=== PATIENT | male | born 1995 | race Caucasian/White ===

== ENCOUNTER 2021-11-22 18:48 | Emergency (ER) | payer OTHER, SELFPAY ==
--- NOTE | ~2021-11-22 | CT_ITS ---
EXAMINATION: CT brain wo con INDICATION: Head injury COMPARISON: None TECHNIQUE: Standard unenhanced head CT. The dose-length product (DLP) was 605.33 mGy-cm. The mA was a djusted according to patient size. Iterative reconstruction technique was employed. FINDINGS: There is no intracranial hemorrhage, acute infarction, or abnormal mass lesion. The ventric les are normal. There is no abnormal mass effect or midline shift. The short-white matter differentiat ion is normal. The basal cisterns are patent. The orbits are normal. There is moderate opacification of the ethmoidal air cells. IMPRESSION: 1. No acute intracranial abnormality. Reviewed, dictated and finalized at location [facility]
[2021-11-22 19:08] VITALS: BP 148/95; PULSE 97; RESP 18; TEMP 36.8; O2SAT 100
[2021-11-22 20:00] VITALS: BP 132/78; PULSE 72; RESP 16; TEMP 36.3; O2SAT 100
[2021-11-22] MEDS: ACETAMINOPHEN 500 MG TABLET 1000 MG PO (20:26)
[2021-11-22 21:00] VITALS: BP 128/84; PULSE 68; RESP 16; TEMP 36.4; O2SAT 100
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
== END 2021-11-22 21:39 | disposition home or self-care (01) ==
PROVIDERS: Emergency Provider Emergency Medicine
DX: S09.90XA Unspecified injury of head, initial encounter (principal); V49.40XA Driver injured in collision with unspecified motor vehicles in traffic accident, initial encounter
CPT/HCPCS: 70450; 99284; A9270